=== PATIENT | male | born 1970 | race Caucasian/White ===

== ENCOUNTER 2021-08-19 14:54 | Outpatient (CLI) | payer OTHER, SELFPAY ==
--- NOTE | 2021-08-19 15:07 | ECG_ITS ---
Measurements Intervals [place] Rate: 68 P: 20 [place]: 131 QRS: 24 QRSD: 105 T: 11 QT: 382 QTc: 407 Interpretive Statements SINUS RHYTHM BORDERLINE T WAVE ABNORMALITY- INFERIOR LEADS BASELINE ARTIFACT- I, II, III, AVR, AVL, AVF BORDERLINE ECG Electronically Signed On 08-19-2021 15:19:56 CDT by Bashir Anne D.O.
[2021-08-19 15:37] LABS: Anion Gap 11 mmol/L (8-16); Blood Urea Nitrogen 14 mg/dL (9-20); Carbon Dioxide 26 mmol/L (22-30); Chloride 102 mmol/L (98-107); Estimated Glomerular Filt Rate > 60; Glucose 132 mg/dL (65-110); Potassium 4.6 mmol/L (3.4-5.0); Sodium 139 mmol/L (137-145)
== END 2021-08-19 14:55 | disposition home or self-care (01) ==
PROVIDERS: Anesthesiology; PCP Family Medicine; Visit Provider Surgery
DX: E11.9 Type 2 diabetes mellitus without complications (principal); K40.90 Unilateral inguinal hernia, without obstruction or gangrene, not specified as recurrent; Z01.818 Encounter for other preprocedural examination
CPT/HCPCS: 36415; 80048; 86850; 86900; 86901; 93005

== ENCOUNTER 2021-08-20 01:18 | Day surgery (SDC) | payer OTHER, SELFPAY ==
--- NOTE | 2021-08-18 10:45 | SUR.PREOP ---
Report to the Outpatient Waiting Room, entrance under the green pavilion located off [facility], at time 1000 on date 08/20/21. OR Time: 1200. - You and your visitor will be asked a series of questions to screen for COVID 19 for your protection. - Only one visitor is allowed at this time. - The patient visitor is requested to leave or wait in car when not with patient. - A mask is required within the hospital. Patients may have clear liquids (water, carbonated beverages, clear teas, apple juice) until 3 hours prior to surgery with a maximum of 20 ounces. - No food from midnight until time of surgery - NO CLEAR LIQUIDS AFTER 0900 - Infants may have breast milk until 4 hours before surgery, infant formula 6 hours prior to surgery. - Children will be allowed to drink immediately following surgery. If applicable, please bring a bottle or sippy cup to assist with drinking. Juice, water, soda, and popsicles are readily available. For infants on formula, please bring formula the day of surgery. Pacifiers are allowed. Take the following medications with a SIP of water the morning of surgery: LORAZEPAM Please no make-up, nail estonian, hairspray, perfume, deodorant, or body powder the day of surgery. No jewelry (including any body piercings) or valuables the day of surgery, leave them at home. Please take a shower or bath the night before, or the morning of, surgery with HIBICLENS soap. Wear comfortable, loose fitting clothing. Children are encouraged to wear pajamas. - Jewelry must be removed prior to entering the operating room. Rings and piercings that are not removed may be cut off. - The hospital will not accept responsibility for valuables. - Please leave all valuables, including medications, at home the day of surgery. If you are going home after surgery, a licensed marine engine driver must drive you home. - NO public transportation without another adult. - We recommend that an adult stay with you for 24 hours following discharge. - We also recommend that you do not drive, make important decision, drink alcoholic beverages, or take any drugs that were not prescribed by your health care provider for at least 24 hours after your discharge time. For Pediatric surgeries, we recommend two adults accompany the child home (only one inside the building at this time). Follow any additional instructions given to you from your surgeon. If you or anyone in your household have experienced Covid symptoms in the past week, please notify your surgeon or the nurse liaison at the phone number below for possible testing. Telephone instructions given to DAVI VILLEGAS and asked if any additional questions and then verbalized understanding. Patient advised to call surgeon office or pre surgery nurse liaison [phone] if any additional questions.
[2021-08-18 10:52] VITALS: BMI 28.1
[2021-08-20] VITALS (8 sets, daily range): BP systolic 110–137; BP diastolic 54–84; PULSE 60–71; RESP 14–20; TEMP 36.5–36.6; O2SAT 94–99; BMI 27.3
[2021-08-20 10:59] LABS: Glucose Point of Care 124 mg/dl (65-105)
[2021-08-20] MEDS: LACTATED RINGERS 1,000 ML 30 ML IV CONT ×3 (10:59→15:50)
[2021-08-20] MEDS: ACETAMINOPHEN 500 MG TABLET 1000 MG PO (11:01)
[2021-08-20] MEDS: KETOROLAC 15 MG/ML VIAL (*BKC) IV PUSH (11:01)
--- NOTE | 2021-08-20 11:37 | SUR.PREOP ---
PT AND SPOUSE NOTIFIED THAT SURGERY WILL BE DELAYED APPROX 1 HOUR.
--- NOTE | 2021-08-20 12:17 | WPDHPUPDATE1 ---
History and Physical Update Update Date/Time: 08/20/21 12:17 History and Physical has been reviewed, including an updated exam of the patient. There are NO changes in the patient's condition. Risks, benefits, and alternatives have been discussed and questions answered. Patient agrees to proceed with procedure.
--- NOTE | 2021-08-20 13:04 | WPDANESEPPF ---
Anes - Initial Pre Proc Eval Procedure: Operation Date: 08/20/21 12:00 Proposed Procedures p Laparoscopic Left Inguinal Hernia Repair with Mesh - Christian Joya MD Date/Time: 08/20/21 13:04 Surgeon: Christian Joya MD Pre Op Diagnosis: left inguinal hernia Patient Data Age: 50 Gender: M Height: 1.78 m Weight: 86.3 kg Last Vital Signs Temp 97.8 F 08/20/21 10:41 Pulse 60 08/20/21 10:41 Resp 18 08/20/21 10:41 BP 110/77 08/20/21 10:41 Pulse Ox 99 08/20/21 10:41 Allergies Allergy/AdvReac Type Severity Reaction Status Date / Time No Known Allergies Allergy Verified 08/20/21 10:35 Home Medications Medication Instructions Recorded Confirmed Type testosterone cypionate 200 mg/mL 200 mg IM .every other week #10 ml 02/18/21 08/20/21 Rx intramuscular oil lorazepam 0.5 mg tablet 0.5 mg PO DAILY PRN #30 tablet 07/10/21 08/20/21 Rx rosuvastatin 5 mg tablet 5 mg PO QPM #90 tablet 07/10/21 08/20/21 Rx empagliflozin [Jardiance] 10 mg PO HS 08/18/21 08/20/21 History escitalopram oxalate 20 mg PO HS 08/18/21 08/20/21 History metformin 2,000 mg PO HS 08/18/21 08/20/21 History Laboratory Tests 08/20/21 10:55 POC Capillary Glucose 124 mg/dl H mg/dl (65-105) Patient hx anesthesia problems: none Family hx anesthesia problems: none Results Review: All pre-operative results and documents have been reviewed as part of the pre-operative evaluation. [facility] Past Medical History Medical History Anxiety Diabetes Left foot pain Low testosterone Surgical History Surgical History H/O neck surgery Family History Family History Father Family history of diabetes mellitus in first degree relative Family history of coronary artery disease Other Diabetes mellitus aunt Other Family history of arthritis Family history of cardiovascular disease Family history of mental disorder Hypertension Social History Social History Smoking status: Never smoker Alcohol intake: current Drinks per week: 2 Alcohol use details: social Substance use: never Substance use type: does not use Other substance usage details: CANNABIS EDIBLES- WEEKLY Living arrangements: with family 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 Informed Consent: The patient's anesthetic plan and its attendant risks and benefits were discussed with the patient/family/POA. Questions were solicited and answers provided to the satisfaction of the patient/family/POA.
[2021-08-20] MEDS: ceFAZolin 2 GM/D5W 50 ML 2 GM/50 ML BAG IVPB (13:14)
--- NOTE | 2021-08-20 15:26 | W.PM.PROC2 ---
Procedure Note - Detailed Date of Procedure 08/20/21 Pre-op Diagnosis left inguinal hernia Post-op Diagnosis Other ( unilateral left Direct inguinal hernia) Procedure Performed 1. 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 There was preperitoneal fat in the direct hernia defect. Description of Procedure After appropriate marking of the operative site prior to surgery, the patient was taken to the operating room. After induction of adequate general endotracheal anesthesia by [facility] staff, the patient was carefully prepped and draped in a sterile fashion. Guerrier catheter was placed prior to the draping. A timeout was performed confirming the procedure and site of surgery on the left. Following this, local anesthetic was infiltrated into the umbilical area and a vertical incision was made just below the umbilicus. I carefully dissected down to the the anterior rectus sheath on the left and then made a 1 cm vertical slit in the fascia just off the midline. The rectus muscle was retracted to left and then just in front of the posterior rectus sheath, a dissecting balloon was passed onto the pubic bone. After placing slight pressure on the right groin area, this was insufflated with 35 pumps, while watching with the 0 degree laparoscope. It appeared that I was in the proper plane. Following this, the dissecting balloon was removed and replaced by a Ruiz cannula with a circular 30 cc conforming balloon. Following this, the 0 degree laparoscope was used to carefully place two 5mm [employer] slim trocars, just to the right of midline. One suprapubic and other one usp between the umbilicus and the pubic bone. Tedious dissection then occurred in the preperitoneal space exposing the Ziggy's ligament, the cord structures, the muscular tissue anteriorly, and the retroperitoneum. Upon starting the dissection we did notice the patient Trendelenburg that there was a tear in the peritoneum high in the left which allowed pneumoperitoneum to occur but we kept the pressure low at 8 and were I was able to see well to do the preperitoneal dissection. This tear was high and anterior such that it would not interfere with mesh placement. The peritoneum was then able to be dissected back and we could visualize the posterior peritoneum. I then dissected up to the level of the umbilicus and it was ready for mesh placement. After carefully confirming all sites and that the mesh would cover the direct space, I carefully rolled the Large 3D Bard mesh and slid this through the 12 mm trocar at the umbilical level down into the preperitoneal space. This unfurled nicely and sat nicely against the left groin structures. It nicely covered all spaces and it went back nicely into the preperitoneal space along the anterior-superior iliac spine. Because of the patient's size and the size the mesh a little bit of difficulty dissecting the lateral peritoneal attachments the back corner of the mesh was slightly rolled but was definitely all preperitoneal. It appeared that the mesh will cover the left preperitoneal groin well, and had come down to the posterior border of the peritoneum. Especially because of the higher anterior tear and went to be sure that the mesh would not migrate so we opened a Tacker. I placed 3 tacks in Ziggy's ligament and to on the anterior abdominal wall 1 on either side of the epigastric vessels. This seemed to hold the mesh nicely in place. Once this was accomplished, I took the patient out of Trendelenburg position, rotated the patient back even, and then observed using a dissector through the more inferior 5 mm trocar to keep the mesh pushed down against the anterior and posteri
[2021-08-20 15:39] LABS: Glucose Point of Care 121 mg/dl (65-105)
== END 2021-08-20 17:30 | disposition home or self-care (01) ==
PROVIDERS: PCP Family Medicine; Visit Provider Surgery
PROC: (CPT 49650; principal; 2021-08-20 12:00)
DX: K40.90 Unilateral inguinal hernia, without obstruction or gangrene, not specified as recurrent (principal); E11.9 Type 2 diabetes mellitus without complications; E29.1 Testicular hypofunction; Z79.84 Long term (current) use of oral hypoglycemic drugs; F12.90 Cannabis use, unspecified, uncomplicated
CPT/HCPCS: 49505; 36415; 80048; 82948; 86850; 86900; 86901; 93005; A9270; C1781; J0690; J1100; J1885; J2250; J2405; J2704; J2710; J3010; J7030; J7120